=== PATIENT | female | born 1945 | race Hispanic/Latino ===

== ENCOUNTER 2016-07-13 15:17 | Emergency (ER) | payer MEDICARE, MEDICAID ==
[~2016-07-13] VITALS: Ht 160 cm; Wt 73.5 kg
[~2016-07-13 15:17] MED LIST: ALPR.5T PO; ASP81TEC PO; CALC-754 PO; CEPH500C PO; CHOL40002 PO; CYAN10007 INJ; DOXY100C2 PO; GBPN100C PO; GLIP10TA13 PO; HYDR-3583 PO; HYDR-3720 PO; INSU100V5 SQ; INSUSS SC; LIRA0.6P SQ; OMEP20CA12 PO; OMEP40CA36 PO; PHEN37.555 PO; PROG100C6 PO; SOLI5TAB4 PO; THYR120T2 PO; THYROID; ZINC30CA PO; ZINC50TA49 PO; [UNRECOGNIZED DRUG - OTHER]
--- OUTSIDE RECORDS SUMMARY | 2016-07-13 15:24 | XMS REPORT ---
Author Author JEANNE REEDER [facility] [place] eClinicalWorks Address Unknown Phone Unavailable Care Team Providers Care Animal Eviscerator Name Role Phone JEANNE REEDER CP Unavailable Allergies No Known Allergies Problems Problem Type Condition Code Onset Dates Condition Status Problem Hypothyroidism, unspecified type E03.9 Active Problem Bipolar affective disorder, remission status unspecified F31.9 Active Problem Type 2 diabetes mellitus without complication, unspecified buttermaker helper insulin use status E11.9 Active Problem History of CVA (cerebrovascular accident) Z86.73 Active Medications Medication Code System Code Instructions Start Date End Date Status Dosage Levemir [facility] [address]-97 100 UNIT/ML Subcutaneous Once a day 20 units Gabapentin [facility] [address]-83 100 MG Orally 2 times a day 2 capsules iron NDC 0 Oral 1 tab Phentermine HCl [facility] [address]-61 37.5 MG Orally Once a day 1 tablet Cyclobenzaprine HCl [facility] [address]-31 10 mg Orally every 8 hours, PRN 1 tablet GlipiZIDE [facility] [address]-39 10 mg Orally 3 times a day 1 tablet Victoza [facility] [address]-60 18 MG/3ML Subcutaneous Once a day 1.8 VESIcare [facility] [address]-03 5 mg Orally PRN 1 tablet Alprazolam [facility] [address]-01 0.5 MG Orally 2 times a day, prn anxiety 1 tablet [place] Thyroid [facility] [address]-66 120 MG Orally Once a day 1 tablet Vital Signs Date/Time: Apr 03, 2016 Blood Pressure Systolic 121 mmHg Weight 162.3 lbs Height 5.3 in BMI 4,061.83 Index Blood Pressure Diastolic 78 mmHg Results No Known Results Summary Purpose eClinicalWorks Submission
[2016-07-13 15:41] LABS: BILIRUBIN,URINE NEGATIVE (NEGATIVE); KETONES,URINE NEGATIVE (NEGATIVE); LEUKOCYTE ESTERASE ,URINE NEGATIVE (NEGATIVE); NITRITE,URINE NEGATIVE (NEGATIVE); PH,URINE 7 (5-9); PROTEIN,URINE NEGATIVE (NEGATIVE); UROBILINOGEN,URINE NORMAL (NORMAL)
[2016-07-13 16:03] LABS: BASOPHILS % (AUTO) 0 % (0-10); EOSINOPHILS # (AUTO) 0.1 10^3/uL (0.0-0.3); EOSINOPHILS % (AUTO) 0 % (0-10); LYMPHOCYTES # (AUTO) 3.8 X 10^3 (1.0-4.0); LYMPHOCYTES % (AUTO) 22 % (12-44); MEAN CORPUSCULAR HEMOGLOBIN 31 PG (25-34); MEAN CORPUSCULAR HGB CONC 35 G/DL (32-36); MEAN CORPUSCULAR VOLUME 90 FL (80-99); MEAN PLATELET VOLUME 10.3 FL (7.4-10.4); MONOCYTES # (AUTO) 0.8 X 10^3 (0.0-1.0); MONOCYTES % (AUTO) 5 % (0-12); NEUTROPHILS # (AUTO) 12.4 X 10^3 (1.8-7.8); NEUTROPHILS % (AUTO) 72 % (42-75); PLATELET COUNT 273 10^3/uL (130-400); RED BLOOD COUNT 5.09 10^6/uL (4.35-5.85); RED CELL DISTRIBUTION WIDTH 13.2 % (10.0-14.5); WHITE BLOOD COUNT 17.2 10^3/uL (4.3-11.0)
[2016-07-13 16:20] LABS: BAND NEUTROPHILS 0 %; BASOPHILS % (MANUAL) 0 %; EOSINOPHILS % (MANUAL) 0 %; LYMPHOCYTES % (MANUAL) 19 %; NEUTROPHILS % (MANUAL) 69 %; REACTIVE LYMPHOCYTES 10 %
[2016-07-13 16:22] LABS: ALANINE AMINOTRANSFERASE 27 U/L (0-55); ALBUMIN 4.3 G/DL (3.2-4.5); ANION GAP 12 MMOL/L (5-14); ASPARTATE AMINO TRANSFERASE 24 U/L (5-34); BLOOD UREA NITROGEN 17 MG/DL (7-18); BUN/CREATININE RATIO 18; CALCIUM 9.3 MG/DL (8.5-10.1); CARBON DIOXIDE 24 MMOL/L (21-32); CHLORIDE 101 MMOL/L (98-107); CREATININE SERUM 0.94 MG/DL (0.60-1.30); GFR ESTIMATED 59; GLUCOSE 139 MG/DL (70-105); POTASSIUM 4.3 MMOL/L (3.6-5.0); SODIUM 137 MMOL/L (135-145)
[2016-07-13 16:23] LABS: ACETAMINOPHEN < 10 UG/ML (10-30); ALCOHOL < 10 MG/DL (<10)
--- NOTE | 2016-07-13 16:42 | ED General ---
General Chief Complaint: General Problems/Pain Stated Complaint: R SIDE NUMBNESS, CONFUSION Nursing Triage Note: PT REPORTS THAT SHE "PASSED OUT" AT AROUND 1030 THIS AM. SHE STATES SHE HAS HAD A HEAD COLD, BUT TOOK AN AIRBORNE PILL THIS AM AND "CLEARED UP" SHE REPORTS THAT SHE WAS "SHAKING ON THIS INSIDE" PRIOR TO PASSING OUT. PT DOES NOT MAKE EYE CONTACT DURING TRIAGE AND IS VERY FIDGETY. Nursing Sepsis Screen: No Definite Risk Source of Information: Patient Exam Limitations: No Limitations History of Present Illness Time Seen by Provider: 16:36 Initial Comments The patient is a 71-year-old white female who appears with complaints of a syncopal episode this morning. She gives a rambling and sometimes circumferential account of the affairs. She states that she had had troubles with sinus congestion recently. She also had seen Dr. Gonzalez 2 weeks ago or so because she was experiencing more left-sided weakness. She stated that she suffered a stroke several years ago and was left with left-sided weakness although she has been ambulatory and able to conduct her activities of daily living. She uses some sort of natural product called airborne when she has congestion. Her neighbor brought her a prescription yesterday and she use that with good results. She felt good yesterday and got some things down about the house. She went to bed and fell sound asleep only to awaken at about 0200. Sleep disorders is not uncommon for her. She reported that she did not take her phentermine yesterday but she must take it to maintain her weight as if she gains weight her thyroid medicine does not work and she gets herself in a terrible mess. She is diabetic and this weight gain also affects that negatively. She also has a large bracelet on her distal forearm for the purposes of taking out a medic blood pressures at intervals. She states that she passed out in the kitchen. She is not at all clear why this happened. When she came to she noted a hematoma on the left side of the scalp in the occipital area Timing/Duration: Resolved Prior to Arrival Allergies and Home Medications Allergies Coded Allergies: Sulfa (Sulfonamide Antibiotics) (Unverified Allergy, Mild, 09/14/08) Uncoded Allergies: BENEDRYL (Allergy, Mild, 09/14/08) PCN (Allergy, Mild, 09/14/08) Home Medications Alprazolam 0.5 Mg Tablet 0.5 MG PO BID (Reported) Cholecalciferol (Vitamin D3) 4,000 Unit Capsule 4,000 UNIT PO DAILY (Reported) Gabapentin 100 Mg Cap 100 MG PO DAILY (Reported) Glipizide 10 Mg Tablet 10 MG PO TID (Reported) Insulin Detemir 100 U/Ml Vial 10 U SQ HS (Reported) Liraglutide 0.6 Mg/0.1 Ml Pen.injctr 1.8 MG SQ DAILY (Reported) Omeprazole 20 Mg Capsule.dr 20 MG PO DAILY (Reported) Phentermine Hcl 37.5 Mg Capsule 37.5 MG PO DAILY (Reported) Solifenacin Succinate 5 Mg Tablet 5 MG PO DAILY (Reported) PRN OVERACTIVE BLADDER Thyroid,Pork 120 Mg Tablet 120 MG PO DAILY (Reported) Zinc Amino Acid Chelate 50 Mg Tablet 50 MG PO DAILY (Reported) Constitutional: see HPI EENTM: nose congestion Respiratory: cough Cardiovascular: no symptoms reported syncope Gastrointestinal: no symptoms reported Genitourinary: no symptoms reported Musculoskeletal: other (mild left-sided weakness) Skin: no symptoms reported Psychiatric/Neurological: No Symptoms Reported Hematologic/Lymphatic: No Symptoms Reported Immunological/Allergic: no symptoms reported Past Hjsrnif-Lesdyy-Doozki Hx Patient Social History Alcohol Use: Past History Recreational Drug Use: No Smoking Status: Never a Smoker Recent Foreign Travel: No Contact w/Someone Who Travel: No Recent Infectious Disease Expo: No Recent Hopitalizations: No Physical Abuse Screen: No Sexual Abuse: No Surgeries HX Surgeries: Yes (KNEE SCOPE, LEFT RCR, LEFT PINKY FX) Surgeries: Appendectomy, Hysterectomy, Tonsillectomy Respiratory Hx Respiratory Disorders: No Cardiovascular Hx Cardiac Disorders: No Neurological Hx Neurological Disorders: Yes Neurological Disorders: TIA Genitourinary Hx Genitourinary Disorders: No Gastrointestinal Hx Gastrointestinal Disorders: No Musculoskeletal Hx Musculoskeletal Disorders: No Endocrine Hx Endocrine Disorders: Yes Endocrine Disorders: Diabetes, Insulin dep, Hypothyroidsim HEENT HX ENT Disorders: No Cancer Hx Cancer: Yes Cancer: Uterine Psychosocial Hx Psychiatric Problems: No Family Medical History Significant Family History: No Pertinent Family Hx Physical Exam Vital Signs Vital Sign - Last 12Hours 07/13/16 15:32 Temp 97.4 Pulse 99 Resp 20 B/P 145/85 Pulse Ox 97 O2 Delivery Room Air Capillary Refill : Less Than 3 Seconds General Appearance: No Apparent Distress WD/WN Eyes: Bilateral Eye Normal Inspection HEENT: Normal ENT Inspection Neck: Normal Inspection Respiratory: Chest Non Tender Lungs Clear Normal Breath Sounds No Accessory Muscle Use No Respiratory Distress Cardiovascular: Regular Rate, Rhythm No Edema No Gallop No JVD No Murmur Normal Peripheral Pulses Gastrointestinal: Normal Bowel Sounds No Organomegaly No Pulsatile Mass Non Tender Soft Extremity: Normal Capillary Refill Normal Inspection Normal Range of Motion Non Tender No Calf Tenderness No Pedal Edema Neurologic/Psychiatric: Alert Oriented x3 No Motor/Sensory Deficits Normal Mood/Affect Skin: Normal Color Warm/Dry Lymphatic: No Adenopathy Comments Legal Secretary was 2+ and equal bilaterally. Straight leg lift was equal bilaterally. There was a palpable hematoma in the left posterior scalp in the parieto- occipital area Progress/Results/Core Measures Results/Orders Lab Results Laboratory Tests Test 07/13/16 15:25 07/13/16 15:56 Range/Units Ur Tricyclic Antidepressants Screen NEGATIVE NEGATIVE Urine Amphetamines Screen POSITIVE H NEGATIVE Urine Bacteria NEGATIVE /HPF Urine Barbiturates Screen NEGATIVE NEGATIVE Urine Benzodiazepines Screen NEGATIVE NEGATIVE Urine Bilirubin NEGATIVE NEGATIVE Urine Cannabinoids Screen NEGATIVE NEGATIVE Urine Casts NONE /LPF Urine Clarity CLEAR Urine Cocaine Screen NEGATIVE NEGATIVE Urine Color YELLOW Urine Crystals NONE /LPF Urine Culture Indicated NO Urine Glucose (UA) NEGATIVE NEGATIVE Urine Ketones NEGATIVE NEGATIVE Urine Leukocyte Esterase NEGATIVE NEGATIVE Urine Methadone Screen NEGATIVE NEGATIVE Urine Methamphetamines Screen NEGATIVE NEGATIVE Urine Mucus NEGATIVE /LPF Urine Nitrite NEGATIVE NEGATIVE Urine Opiates Screen NEGATIVE NEGATIVE Urine Oxycodone Screen NEGATIVE NEGATIVE Urine Phencyclidine Screen NEGATIVE NEGATIVE Urine Propoxyphene Screen NEGATIVE NEGATIVE Urine Protein NEGATIVE NEGATIVE Urine RBC NONE /HPF Urine RBC (Auto) NEGATIVE NEGATIVE Urine Specific Lejunior 1.005 L 1.016-1.022 Urine Squamous Epithelial Cells 5-10 /HPF Urine Urobilinogen NORMAL NORMAL MG/DL Urine WBC NONE /HPF Urine pH 7 5-9 Acetaminophen Level < 10 L 10-30 UG/ML Alanine Aminotransferase (ALT/SGPT) 27 0-55 U/L Albumin 4.3 3.2-4.5 G/DL Alkaline Phosphatase 79 40-136 U/L Anion Gap 12 5-14 MMOL/L Aspartate Amino Transf (AST/SGOT) 24 5-34 U/L BUN/Creatinine Ratio 18 Band Neutrophils 0 % Basophils # (Auto) 0.0 0.0-0.1 10^3/uL Basophils % (Manual) 0 % Basophils (%) (Auto) 0 0-10 % Blood Morphology Comment NORMAL Blood Urea Nitrogen 17 7-18 MG/DL Calcium Level 9.3 8.5-10.1 MG/DL Carbon Dioxide Level 24 21-32 MMOL/L Chloride Level 101 98-107 MMOL/L Creatinine 0.94 0.60-1.30 MG/DL Eosinophils # (Auto) 0.1 0.0-0.3 10^3/uL Eosinophils % (Manual) 0 % Eosinophils (%) (Auto) 0 0-10 % Estimat Glomerular Filtration Rate 59 Glucose Level 139 H 70-105 MG/DL Hematocrit 46 35-52 % Hemoglobin 15.8 11.5-16.0 G/DL Lymphocytes # (Auto) 3.8 1.0-4.0 X 10^3 Lymphocytes % (Manual) 19 % Lymphocytes (%) (Auto) 22 12-44 % Mean Corpuscular Hemoglobin 31 25-34 PG Mean Corpuscular Hemoglobin Concent 35 32-36 G/DL Mean Corpuscular Volume 90 80-99 FL Mean Platelet Volume 10.3 7.4-10.4 FL Monocytes # (Auto) 0.8 0.0-1.0 X 10^3 Monocytes % (Manual) 2 % Monocytes (%) (Auto) 5 0-12 % Neutrophils # (Auto) 12.4 H 1.8-7.8 X 10^3 Neutrophils % (Manual) 69 % Neutrophils (%) (Auto) 72 42-75 % Platelet Count 273 130-400 10^3/uL Potassium Level 4.3 3.6-5.0 MMOL/L Reactive Lymphocytes 10 % Red Blood Count 5.09 4.35-5.85 10^6/uL Red Cell Distribution Width 13.2 10.0-14.5 % Serum Alcohol < 10 <10 MG/DL Sodium Level 137 135-145 MMOL/L Total Bilirubin 1.0 0.1-1.0 MG/DL Total Protein 7.0 6.4-8.2 G/DL White Blood Count 17.2 H 4.3-11.0 10^3/uL My Orders Orders-MARIA R GARZA MD Acetaminophen (07/13/16 15:35) Alcohol (07/13/16 15:35) Cbc With Automated Diff (07/13/16 15:35) Comprehensive Metabolic Panel (07/13/16 15:35) Drug Screen Stat (Urine) (07/13/16 15:35) Ua Culture If Indicated (07/13/16 15:35) Manual Differential (07/13/16 15:56) Ct Head Wo (07/13/16 16:46) Vital Signs/I&O Vital Sign - Last 12Hours 07/13/16 15:32 Temp 97.4 Pulse 99 Resp 20 B/P 145/85 Pulse Ox 97 O2 Delivery Room Air Blood Pressure Mean: 105 Departure Communication Progress Notes CT scan shows no evidence of subdural hematoma or other pathology. Impression Impression: Primary Impression: Episode of syncope Additional Impressions: Viral upper respiratory illness upper respiratory illness Disposition: HOME, SELF-CARE Condition: Stable/Unchanged Departure-Patient Inst. Decision time for Depature: 17:57 Referrals: SHASHANK GONZALEZ MD (PCP) Primary Care Physician Add. Discharge Instructions: All discharge instructions reviewed with patient and/or family. Voiced understanding. Plenty of rest and liquids. See your provider if further problems MARIA R GARZA MD Jul 13, 2016 16:41
--- NOTE | 2016-07-13 17:33 | Diagnostic Imaging Report ---
PROCEDURE: CT head without contrast. TECHNIQUE: Multiple contiguous axial images were obtained through the brain without the use of intravenous contrast. INDICATION: Syncope, hit head. COMPARISON: November 02, 2012. FINDINGS: No intracranial hemorrhage. No intracranial mass, mass effect, midline shift, herniation, hydrocephalus or extra-axial fluid collection. No definite CT evidence of an acute ischemic infarction. The bilateral occular lenses are absent. The paranasal sinuses are clear. The calvarium and extracalvarial soft tissues are unremarkable. IMPRESSION: Stable examination without acute intracranial abnormality. Dictated by: Dictated on workstation # [id number]
[2016-07-13 18:20] VITALS: BP 133/83
== END 2016-07-13 18:20 | disposition home or self-care (01) ==
LOC: EDUNIT# 15:17 → ER 15:19
DX: R55 Syncope and collapse (principal); J06.9 Acute upper respiratory infection, unspecified; S00.03XA Contusion of scalp, initial encounter; E11.9 Type 2 diabetes mellitus without complications; E03.9 Hypothyroidism, unspecified; I69.954 Hemiplegia and hemiparesis following unspecified cerebrovascular disease affecting left non-dominant side; Z79.84 Long term (current) use of oral hypoglycemic drugs; Z79.4 Long term (current) use of insulin; Z79.899 Other long term (current) drug therapy
CPT/HCPCS: 36415; 70450; 80053; 80306; 80320; 80329; 81000; 85007; 85027

== ENCOUNTER → 2016-07-28 | Outpatient (CLI) | payer MEDICARE, MEDICAID ==
--- NOTE | 2016-07-28 13:25 | Diagnostic Imaging Report ---
PROCEDURE: US Carotid Duplex Bilateral. TECHNIQUE: Multiple real-time grayscale images were obtained over the carotid arteries in various projections bilaterally. Additional duplex Doppler and color Doppler images were also obtained. INDICATION: E89.41 FINDINGS: No significant plaque is seen on grayscale images. Color Doppler demonstrates patency of the common, internal, and external carotid arteries bilaterally. Antegrade flow in the vertebral arteries is seen on both sides. The peak systolic velocity in the right ICA is 87 with 66 cm/s in the proximal and mid right ICA. The distal right ICA is not well seen due to tortuosity. The left ICA velocities are 53, 75, and 83 cm/s from proximal to distal. The ICA/CCA ratios are up to 1.1 on the right side and 1.2 on the left. IMPRESSION: The right ICA distal segment is not well evaluated. The estimated underlying stenosis of the proximal ICA is within the range of 0-40% bilaterally. Dictated by: Dictated on workstation # [id number]
== END ==
LOC: RAD 11:54
DX: R55 Syncope and collapse (principal); I65.23 Occlusion and stenosis of bilateral carotid arteries; I10 Essential (primary) hypertension; E89.41 Symptomatic postprocedural ovarian failure; E03.9 Hypothyroidism, unspecified; I63.9 Cerebral infarction, unspecified; N39.3 Stress incontinence (female) (male); H40.9 Unspecified glaucoma; E10.9 Type 1 diabetes mellitus without complications; F32.9 Major depressive disorder, single episode, unspecified; F41.1 Generalized anxiety disorder
CPT/HCPCS: 93880

== ENCOUNTER → 2016-07-31 | Outpatient (CLI) | payer MEDICARE, MEDICAID ==
--- NOTE | 2016-08-04 10:39 | ECHOCARDIOGRAPHY REPORT ---
PROCEDURE PHYSICIAN: RENE LO DATE OF PROCEDURE: 07/31/2016 TWO DIMENSIONAL ECHOCARDIOGRAM REPORT PRIMARY PHYSICIAN: OTHER PHYSICIAN: REFERRING PHYSICIAN: Dr. Rashawn Mcfarland ORDERING PHYSICIAN: INDICATION FOR THE PROCEDURE: 1. Coronary artery disease. 2. Chest pain. MEASUREMENTS DERIVED VALUES LV DIAMETER (LAX) NORMALS NORMALS Diastolic 4 (3.6-5.2) Eject. Fract. 60% (60%+/-6%) Systolic (2.3-3.9) Diastolic Vol. % Shortening (0.22-0.42) Systolic Vol. Aortic Root IVS THICKNESS Diastolic 1.1 (0.6-1.1) LVPW THICKNESS Diastolic 1 (0.6-1.1) LA DIAMETER Systolic 3.1 (2.1-3.7) FINDINGS: 1. Technical quality is good. 2. The left ventricle is normal in size with normal contractility. Systolic function appeared to be normal. Estimated ejection fraction 60%. 3. The left atrium is normal in size. No clot or thrombus were seen within the left atrium. 4. The right atrium and right ventricle are normal in size. No clot or thrombus were seen within the right side. 5. Mitral valve is normal in morphology with mild mitral regurgitation noted by color Doppler flow. No mitral valve prolapse. No mitral valve stenosis. 6. Aortic valve is trileaflet with normal opening and closing pattern. No significant aortic valve stenosis was noted. Color Doppler flow across the aortic valve showed mild aortic regurgitation. 7. Tricuspid valve is normal in morphology with mild tricuspid regurgitation noted by color Doppler flow. Doppler across tricuspid valve estimated pulmonary artery pressure of 24+ right atrial pressure. 8. Pulmonic valve is functioning normally. 9. No pericardial effusion. IN CONCLUSION: 1. Normal left ventricular size and systolic function. Estimated ejection fraction 60%. 2. Mild aortic regurgitation. Mild mitral and tricuspid regurgitation. 3. Estimated pulmonary artery pressure of 30 mmHg. Job ID: [id number] Dictated Date: 08/04/2016 07:54:40 Die Engraver Date: 08/04/2016 10:37:00 / tbruchi
== END ==
LOC: CARD 08:46
PROVIDERS: ATTEND Internal Medicine Cardiovascular Disease
DX: R07.9 Chest pain, unspecified (principal); G45.9 Transient cerebral ischemic attack, unspecified; E03.9 Hypothyroidism, unspecified
CPT/HCPCS: 93225; 93226; 93306

== ENCOUNTER 2017-11-19 15:50 | Outpatient (CLI) | payer MEDICARE, MEDICAID ==
[~2017-11-19] VITALS: Ht 160 cm; Wt 68.9 kg
[2017-11-19] MEDS ORDERED: GLIP10TA13 PO (15:56)
[2017-11-19] MEDS ORDERED: INSU100I29 SQ (15:56)
[2017-11-19] MEDS ORDERED: PHEN37.53 PO (15:56)
[2017-11-19] MEDS ORDERED: GABA-488 PO (15:56)
[2017-11-19] MEDS ORDERED: CALC215T2 PO (15:56)
[2017-11-19] MEDS ORDERED: NF-SOLIF5T PO (15:56)
[2017-11-19] MEDS ORDERED: THYR120T2 PO (15:56)
[2017-11-19] MEDS ORDERED: ASPI-586 PO (15:56)
[2017-11-19] MEDS ORDERED: METF500T5 PO (15:56)
[2017-11-19] MEDS ORDERED: LIRA0.6P3 SQ (15:56)
[2017-11-19] MEDS ORDERED: OMG1KC PO (15:56)
== END 2017-11-19 15:56 ==
LOC: PREOP 15:50
PROVIDERS: ATTEND Surgery
DX: Z01.818 Encounter for other preprocedural examination (principal); R13.10 Dysphagia, unspecified

== ENCOUNTER 2017-11-23 11:51 | Day surgery (SDC) | payer MEDICARE, MEDICAID ==
[~2017-11-23] VITALS: Ht 160 cm; Wt 68.9 kg
[~2017-11-23 11:51] MED LIST changes: +ASPI-586 PO; +CALC215T2 PO; +GABA-488 PO; +INSU100I29 SQ; +LIRA0.6P3 SQ; +METF500T5 PO; +NF-SOLIF5T PO; +OMG1KC PO; +PHEN37.53 PO
[2017-11-23] MEDS ORDERED: NS IV 500 ML 500 ML IV PRN (12:06)
[2017-11-23 12:10] VITALS: BP 126/81
[2017-11-23] MEDS ORDERED: NS IV 500 ML 500 ML ONE (12:11)
[2017-11-23] MEDS ORDERED: MIDAZOLAM 2 MG/2 ML (VERSED) VIAL IVP PRN (12:15)
[2017-11-23] MEDS ORDERED: fentaNYL INJECTION 100 MCG/2 ML AMP IVP PRN (12:15)
[2017-11-23] MEDS ORDERED: HURRICAINE EXT TUBE (BENZOCAINE) XX PRN (12:15)
--- NOTE | 2017-11-23 12:36 | History & Physicial ---
History of Present Illness History of Present Illness Reason for visit/HPI To undergo an EGD with possible balloon dilatation, regarding dysphagia Date of Admission 11/23/17 Date Seen by Provider: Nov 23, 2017 Time Seen by Provider: 12:34 I consulted on this patient on 11/23/17 12:33 Attending Physician Caridad Diaz MD Admitting Physician Rashawn Mcfarland MD Consult Allergies and Home Medications Allergies Coded Allergies: Sulfa (Sulfonamide Antibiotics) (Unverified Allergy, Mild, 09/14/08) Uncoded Allergies: BENEDRYL (Allergy, Mild, 09/14/08) PCN (Allergy, Mild, 09/14/08) Home Medications Aspirin 81 Mg Tablet.dr, 81 MG PO DAILY, (Reported) Calcium Carbonate 215 Mg Tab.chew, 215 MG PO TIDPC, (Reported) Gabapentin 300 Mg Capsule, 300 MG PO BID, (Reported) Glipizide 10 Mg Tablet, 10 MG PO TID, (Reported) Insulin Detemir 100 Unit/1 Ml Insuln.pen, 25 UNIT SQ HS, (Reported) Liraglutide 0.6 Mg/0.1 Ml Pen.injctr, 1.2 MG SQ DAILY, (Reported) Metformin HCl 500 Mg Tablet, 500 MG PO DAILY, (Reported) [place] 3 Polyunsat Fatty Acids 1,000 Mg Cap, 1,000 MG PO TID, (Reported) Phentermine HCl 37.5 Mg Tablet, 56.25 MG PO DAILY, (Reported) take 1 1/2 of 37.5 mg tab Solifenacin Succinate 5 Mg Tablet, 5 MG PO DAILY, (Reported) Thyroid,Pork 120 Mg Tablet, 120 MG PO DAILY, (Reported) Patient Home Medication List Home Medication List Reviewed: Yes Past Azqltgn-Naemsi-Ziwhzb Hx Patient Social History Employed/Student: retired Alcohol Use: Denies Use Recreational Drug Use: No (HX OF DRUG USE) Smoking Status: Never a Smoker Recent Foreign Travel: No Contact w/other who traveled: No Recent Hopitalizations: No Recent Infectious Disease Expo: No Seasonal Allergies Seasonal Allergies: No Surgeries Yes Appendectomy, Hysterectomy, Tonsillectomy Respiratory No Neurological No TIA Gastrointestinal Yes Hemorrhoids Musculoskeletal No Endocrine History of Endocrine Disorders: Yes Endocrine Disorders: Diabetes, Insulin dep, Hypothyroidsim Cancer Yes Uterine Did You Recieve Any Treatments: Yes Type of Treatment: Surgical Intervention Psychosocial History of Psychiatric Problem: No Family Medical History Significant Family History: No Pertinent Family Hx Constitutional: no symptoms reported EENTM: no symptoms reported Respiratory: no symptoms reported Cardiovascular: no symptoms reported Gastrointestinal: see HPI Genitourinary: no symptoms reported Skin: no symptoms reported Psychiatric/Neurological: No Symptoms Reported Physical Exam Vital Signs Vital Signs - First Documented 11/23/17 12:10 Temp 98.0 Pulse 81 Resp 16 B/P (MAP) 126/81 (96) Pulse Ox 98 O2 Delivery Room Air Capillary Refill : General Appearance: No Apparent Distress Neck: Normal Inspection Respiratory: Lungs Clear Cardiovascular: Regular Rate, Rhythm Gastrointestinal: Non Tender, Soft Neurologic/Psychiatric: Alert, Oriented x3 Skin: Warm/Dry Assessment/Plan Assessment and Plan Lady with dysphagia. For an upper endoscopy with possible balloon dilatation Admission Diagnosis Admission Status: Other (Outpt Proc) CARIDAD DIAZ MD Nov 23, 2017 12:36 pm
--- NOTE | 2017-11-23 12:36 | Conscious Sedation/ASA ---
Conscious Sedation Pre-Proced Time Reviewed: 12:36 ASA Class: 2 Airway Mallampati Classification: (elim ira appropriate class) I. II. III, IV Lungs Heart ASA score ASA 1: a normal healthy patient ASA 2: a patient with a mild systemic disease (mid diabetes, controlled hypertension, obesity ASA 3: a patient with a severe systemic disease that limits activity (angina , COPD, prior Myocardial infarction) ASA 4: a patient with an incapacitating disease that is a constant threat to life (CHF, renal failure) ASA 5: a moribund patient not expected to survive 24 hrs. (ruptured aneurysm) ASA 6: a declared brain patient whose organs are being harvested. For emergent operations, add the letter E after the classification Grade 1 Sedation Plan: Discussed options with patient/fam Note The patient is an appropriate candidate to undergo the planned procedure, sedation, and anesthesia. The patient immediately re-assessed prior to indication. CARIDAD DIAZ MD Nov 23, 2017 12:36 pm
[2017-11-23] MEDS ORDERED: MIDAZOLAM 2 MG/2 ML (VERSED) VIAL ONE ×2 (13:45)
[2017-11-23] MEDS ORDERED: fentaNYL INJECTION 100 MCG/2 ML AMP ONE (13:46)
[2017-11-23] MEDS ORDERED: HURRICAINE EXT TUBE (BENZOCAINE) ONE (13:46)
--- NOTE | 2017-11-23 14:18 | Endo Procedure Record ---
Endo Procedure Report Date of Procedure Last Colonoscopy: Yes Nov 23, 2017 Surgeon (s) CARIDAD DIAZ MD Post Procedure/Op Diagnosis Tortuous esophagus Hiatal hernia with esophageal stricture Procedure Performed EGD Redfield cytology of distal esophagus Balloon dilatation of esophageal stricture Description of Procedure Anesthesia Type: Conscious Sedation Specimen(s) collected/removed Redfield cytology from the distal esophagus Description of the Procedure Indication for the procedure: This lady came in for an upper endoscopy with an intent to perform balloon dilatation, regarding ongoing dysphagia. Informed consent was obtained after reviewing the procedure in detail. Description of the procedure: She was placed in left lateral decubitus position and her vital signs were monitored. Conscious sedation was achieved using Versed and fentanyl. The flexible gastroscope was introduced down the esophagus , past the stomach, into the proximal duodenum. Findings: Esophagus: Quite tortuous with a hiatal hernia and an associated peptic stricture. Redfield cytology was obtained to rule out any dysplasia and the stricture was dilated to 19 mm using a balloon Stomach and duodenum were normal. She tolerated the procedure well and was taken back to the nursing area in stable condition. Impression: Dysphagia due to distal esophageal stricture. Tortuous esophagus. Balloon dilatation completed. Note: If her symptoms continue, she would undergo esophageal manometry CARIDAD DIAZ MD Nov 23, 2017 2:18 pm
--- NOTE | 2017-11-23 14:20 | Discharge Inst-Simple/Standard ---
Discharge Inst-Standard Discharge Medications New, Converted or Re-Newed RX: Other Patient Instructions/Follow Up Plan of Care/Instructions/FU: Follow-up with me in a month Activity as Tolerated: Yes Discharge Diet: ADA Diet CARIDAD DIAZ MD Nov 23, 2017 2:20 pm
[2017-11-23 14:35] VITALS: BP 129/72
[2017-11-23 15:05] VITALS: BP 130/76
[2017-11-23 15:15] VITALS: BP 130/76
== END 2017-11-23 15:15 | disposition home or self-care (01) ==
LOC: ENDO 11:51
PROVIDERS: ATTEND Surgery
DX: K22.2 Esophageal obstruction (principal); K44.9 Diaphragmatic hernia without obstruction or gangrene; E11.9 Type 2 diabetes mellitus without complications; E03.9 Hypothyroidism, unspecified; Z79.4 Long term (current) use of insulin; Z86.73 Personal history of transient ischemic attack (TIA), and cerebral infarction without residual deficits
CPT/HCPCS: 82962

== ENCOUNTER → 2017-12-17 | Outpatient (CLI) | payer MEDICARE, MEDICAID ==
--- NOTE | 2017-12-17 13:12 | Diagnostic Imaging Report ---
DEXA scan. Indication: Screening for osteoporosis. There are no prior studies available for comparison. The bone mineral density of the hips and spine was measured. The T score for the spine is 1.3. The T score for the left hip is 3.2 and for the right hip 2.2. All these values are well within normal limits. Impression: The bone mineral density of the hips and spine is within normal limits. Dictated by: Dictated on workstation # [id number]
== END ==
LOC: RAD 10:40
PROVIDERS: ATTEND Internal Medicine Endocrinology, Diabetes & Metabolism
DX: Z13.820 Encounter for screening for osteoporosis (principal); Z78.0 Asymptomatic menopausal state
CPT/HCPCS: 77080

== ENCOUNTER → 2018-10-07 | Outpatient (CLI) | payer MEDICARE, MEDICAID ==
[~2018-10-07] MED LIST changes: +METF-397 PO; -METF500T5 PO
--- NOTE | 2018-10-07 12:16 | Diagnostic Imaging Report ---
CLINICAL INDICATION: Patient with dysphagia and fatigue. COMPARISONS: None. FINDINGS: THYROID NODULES: None. THYROID GLAND: The thyroid gland has normal size, shape and echogenicity. The right lobe measures 3.9 cm x 1.2 cm x 1.3 cm and the left lobe measures 4.5 cm x 1.4 cm x 0.9 cm in their three dimensions. ISTHMUS: The isthmus measures 6 mm in thickness. IMPRESSION: Unremarkable thyroid ultrasound exam. Dictated by: Dictated on workstation # [id number]
== END ==
LOC: RAD 11:14
PROVIDERS: ATTEND Surgery
DX: R13.10 Dysphagia, unspecified (principal); R53.83 Other fatigue
CPT/HCPCS: 76536

== ENCOUNTER → 2018-12-15 | Outpatient (CLI) | payer MEDICARE, MEDICAID ==
--- NOTE | 2018-12-15 13:51 | Diagnostic Imaging Report ---
INDICATION: Blurred vision, headache, and dizziness. EXAMINATION: Noncontrast brain CT is performed and compared to 07/13/2016. FINDINGS: There are mild diffuse atrophic changes. There are mild low-density changes in the deep white matter compatible with chronic ischemic change. There is no acute hemorrhage, mass effect, or midline shift. The ventricles are normal in size and position. Calvarial windows appear unremarkable. IMPRESSION: No acute hemorrhage or mass effect. Mild atrophic changes with mild chronic changes in deep white matter, appearing similar to the prior study. There is no acute-appearing abnormality. Dictated by: Dictated on workstation # [id number]
== END ==
LOC: RAD 13:14
PROVIDERS: ATTEND Nurse Practitioner
DX: F03.90 Unspecified dementia, unspecified severity, without behavioral disturbance, psychotic disturbance, mood disturbance, and anxiety (principal); G31.9 Degenerative disease of nervous system, unspecified; R90.82 White matter disease, unspecified; H53.8 Other visual disturbances
CPT/HCPCS: 70450

== ENCOUNTER → 2019-03-10 | Outpatient (CLI) | payer MEDICARE, MEDICAID | LOC: CARD 12:38 | PROVIDERS: ATTEND Physician Assistant | DX: I65.29 Occlusion and stenosis of unspecified carotid artery (principal); F41.9 Anxiety disorder, unspecified; I10 Essential (primary) hypertension; E78.5 Hyperlipidemia, unspecified; I34.0 Nonrheumatic mitral (valve) insufficiency; R00.2 Palpitations | CPT/HCPCS: 93306 ==

== ENCOUNTER → 2019-11-08 | Outpatient (CLI) | payer MEDICARE, MEDICAID ==
--- NOTE | 2019-11-08 14:48 | Diagnostic Imaging Report ---
INDICATION: Routine screening. COMPARISON: 04/02/2017 and 03/12/2016. TECHNIQUE: 2D and 3D bilateral screening mammography was performed with CAD. FINDINGS: Scattered fibroglandular densities are identified bilaterally. An intraparenchymal lymph node in the far posterior and outer right breast is noted. There are scattered benign calcifications in both breasts. No mass or malignant appearing microcalcifications are seen. The axillae are unremarkable. IMPRESSION: No mammographic features suspicious for malignancy are identified. ACR BI-RADS Category 2: Benign findings. Result letter will be mailed to the patient. Note: At least 10% of breast cancer is not imaged by mammography. Dictated by: Dictated on workstation # [id number]
== END ==
LOC: RAD 11:52
PROVIDERS: ATTEND Nurse Practitioner Family
DX: Z12.31 Encounter for screening mammogram for malignant neoplasm of breast (principal)
CPT/HCPCS: 77063; 77067

== ENCOUNTER → 2019-11-16 | Outpatient (CLI) | payer MEDICARE, MEDICAID ==
[2019-11-16 11:38] LABS: ALANINE AMINOTRANSFERASE 32 U/L (0-55); ALBUMIN 4.5 GM/DL (3.2-4.5); ALKALINE PHOSPHATASE 86 U/L (40-136); BILIRUBIN,TOTAL 0.7 MG/DL (0.1-1.0); BUN/CREATININE RATIO 23; CALCIUM 9.5 MG/DL (8.5-10.1); CARBON DIOXIDE 23 MMOL/L (21-32); CHLORIDE 107 MMOL/L (98-107); CHOLESTEROL 149 MG/DL (< 200); CREATININE SERUM 0.84 MG/DL (0.60-1.30); GFR ESTIMATED > 60; GLUCOSE 211 MG/DL (70-105); HDL CHOLESTEROL 45 MG/DL (40-60); POTASSIUM 4.3 MMOL/L (3.6-5.0); SODIUM 139 MMOL/L (135-145); TOTAL PROTEIN 7.9 GM/DL (6.4-8.2); TRIGLYCERIDES 222 MG/DL (<150); VLDL CHOLESTEROL 44 MG/DL (5-40)
== END ==
LOC: LAB 10:50
PROVIDERS: ATTEND Nurse Practitioner Family
DX: E03.8 Other specified hypothyroidism (principal); E11.9 Type 2 diabetes mellitus without complications
CPT/HCPCS: 36415; 80053; 80061; 82043; 84443

== ENCOUNTER → 2019-11-16 | Outpatient (CLI) | payer MEDICARE, MEDICAID ==
[2019-11-16 11:58] LABS: ALKALINE PHOSPHATASE 86 U/L (40-136); BILIRUBIN,TOTAL 0.7 MG/DL (0.1-1.0); BUN/CREATININE RATIO 23; CALCIUM 9.5 MG/DL (8.5-10.1); CARBON DIOXIDE 23 MMOL/L (21-32); CHLORIDE 107 MMOL/L (98-107); CREATININE SERUM 0.84 MG/DL (0.60-1.30); GFR ESTIMATED > 60; GLUCOSE 211 MG/DL (70-105); POTASSIUM 4.3 MMOL/L (3.6-5.0); SODIUM 139 MMOL/L (135-145)
[2019-11-16 11:59] LABS: ALANINE AMINOTRANSFERASE 32 U/L (0-55); ALBUMIN 4.5 GM/DL (3.2-4.5); CHOLESTEROL 149 MG/DL (< 200); HDL CHOLESTEROL 45 MG/DL (40-60); TOTAL PROTEIN 7.9 GM/DL (6.4-8.2); TRIGLYCERIDES 222 MG/DL (<150); VLDL CHOLESTEROL 44 MG/DL (5-40)
== END ==
LOC: LAB 10:53
PROVIDERS: ATTEND Internal Medicine Cardiovascular Disease
DX: E78.5 Hyperlipidemia, unspecified (principal); I10 Essential (primary) hypertension
CPT/HCPCS: 80053; 80061

== ENCOUNTER → 2020-05-21 | Outpatient (CLI) | payer MEDICARE, MEDICAID ==
[2020-05-21 10:22] LABS: ALANINE AMINOTRANSFERASE 29 U/L (0-55); ALBUMIN 4.3 GM/DL (3.2-4.5); ALKALINE PHOSPHATASE 86 U/L (40-136); BILIRUBIN,TOTAL 0.8 MG/DL (0.1-1.0); BUN/CREATININE RATIO 22; CALCIUM 8.9 MG/DL (8.5-10.1); CARBON DIOXIDE 21 MMOL/L (21-32); CHLORIDE 108 MMOL/L (98-107); CHOLESTEROL 160 MG/DL (< 200); CREATININE SERUM 0.85 MG/DL (0.60-1.30); GFR ESTIMATED > 60; GLUCOSE 184 MG/DL (70-105); HDL CHOLESTEROL 43 MG/DL (40-60); POTASSIUM 4.3 MMOL/L (3.6-5.0); SODIUM 140 MMOL/L (135-145); TOTAL PROTEIN 7.4 GM/DL (6.4-8.2); TRIGLYCERIDES 178 MG/DL (<150); VLDL CHOLESTEROL 36 MG/DL (5-40)
== END ==
LOC: LAB 09:35
PROVIDERS: ATTEND Physician Assistant
DX: E78.5 Hyperlipidemia, unspecified (principal); I10 Essential (primary) hypertension
CPT/HCPCS: 36415; 80053; 80061

== ENCOUNTER → 2021-03-08 | Outpatient (CLI) | payer MEDICARE, MEDICAID ==
[~2021-03-08] MED LIST changes: -CALC215T2 PO; +CALC215T8 PO; -PHEN37.53 PO; +PHEN37.58 PO; +REGADENOSON 0.4 MG/5 ML SYR (LEXISCAN) IV ONE
== END ==
LOC: CARD 07:32
PROVIDERS: ATTEND Physician Assistant
DX: I35.1 Nonrheumatic aortic (valve) insufficiency (principal); I10 Essential (primary) hypertension
CPT/HCPCS: 93306

== ENCOUNTER → 2021-03-11 | Outpatient (CLI) | payer MEDICARE, MEDICAID ==
[~2021-03-11] VITALS: Ht 154 cm; Wt 69.0 kg
[~2021-03-11] MED LIST changes: +CATHETER FLUSH 10 ML SYR IV PRN
[2021-03-11 09:28] VITALS: BP 144/78
--- NOTE | 2021-03-11 11:22 | Cardiology Stress Test Report ---
Stress Test Report Date of Procedure/Referring: Date of Procedure: Mar 11, 2021 Rea Kapadia Admitting [facility] Indications: HTN Baseline Heart Rate: 73 Baseline Blood Pressure: Blood Pressure Systolic: 144 Blood Pressure Diastolic: 78 Baseline Vitals Vital Signs Date Time Temp Pulse Resp B/P (MAP) Pulse Ox O2 Delivery O2 Flow Rate FiO2 03/11/21 09:28 73 144/78 (100) 95 Baseline EKG: Baseline EKG: NSR Summary After explaining the procedure to the patient, she signed a consent and then brought to the stress nuclear laboratory. Patient received 0.4 mg Lexiscan for stress test, ECG, heart rate and blood pressure were monitored continuously. Resting and stress dose of radio tracer were injected, imaging was acquired and reviewed in short axis, horizontal long axis and vertical long axis views. TID: 1.07 SSS: 5 SDS: 1 EF: 67 1. Patient tolerated Lexiscan well 2. Mild decreased uptake at the basal to mid inferior septum which is fixed, no significant ischemia or infarction was noted on SPECT images 3. Normal left ventricular size, EF 67% RENE LO MD Mar 11, 2021 11:22
== END ==
LOC: CARD 08:00
PROVIDERS: ATTEND Physician Assistant
DX: I10 Essential (primary) hypertension (principal); R07.9 Chest pain, unspecified
CPT/HCPCS: 78452; 93017; A9502

== ENCOUNTER → 2021-05-23 | Outpatient (CLI) | payer MEDICARE, MEDICAID ==
[~2021-05-23] MED LIST changes: -CATHETER FLUSH 10 ML SYR IV PRN; -REGADENOSON 0.4 MG/5 ML SYR (LEXISCAN) IV ONE; +RT-ALBUTEROL SULF 2.5 MG/3 ML PRE-MIX VIAL INH ONE
== END ==
LOC: RT 13:00
PROVIDERS: ATTEND Internal Medicine Cardiovascular Disease
DX: R06.00 Dyspnea, unspecified (principal)
CPT/HCPCS: 94060; 94726; 94729

== ENCOUNTER 2021-05-30 10:22 | Emergency (ER) | payer MEDICARE, MEDICAID ==
[~2021-05-30] VITALS: Ht 157 cm; Wt 68.0 kg
[~2021-05-30 10:22] MED LIST changes: -RT-ALBUTEROL SULF 2.5 MG/3 ML PRE-MIX VIAL INH ONE
--- NOTE | 2021-05-30 11:16 | Diagnostic Imaging Report ---
PROCEDURE: CT head, face, and cervical spine without contrast. TECHNIQUE: Multiple contiguous axial images were obtained through the head, neck, and facial bones without the use of intravenous contrast. Sagittal and coronal reformations through the cervical spine and facial bones were also performed. Auto Exposure Controls were utilized during the CT exam to meet ALARA standards for radiation dose reduction. INDICATION: Fall with head, face and neck injury. Correlation is made with head CT from 12/15/2018. CT HEAD: Ventricles and sulci remain prominent consistent with cerebral atrophy. There is no sulcal effacement or midline shift. No acute intra-axial or extra-axial hemorrhage is detected. Cisterns are patent. Visualized paranasal sinuses are clear. IMPRESSION: Stable chronic changes. No acute intracranial process is detected. CT cervical spine: There is straightening of the normal cervical lordotic curvature. There is minimal anterolisthesis of C4 on C5. There is multilevel degenerative disc disease, greatest at C5-C6, C6/C7 and C7-T1 levels were there is moderate disc space narrowing and marginal spurring. Multilevel facet arthropathy is also noted. No fractures are identified. Prevertebral tissues are within normal limits. Odontoid is intact. IMPRESSION: Cervical spondylosis. No acute bony abnormality is detected. CT face: Mandible is intact. Zygotic arches are intact. Maxillary sinus tomlin, nasal bones and orbital tomlin are intact. No fracture is seen. The frontal sinuses show some minimal mucosal thickening. Sinuses are otherwise clear. Mastoids are well aerated. IMPRESSION: No facial bone fracture is detected. Dictated by: Dictated on workstation # [id number]
--- NOTE | 2021-05-30 11:21 | Diagnostic Imaging Report ---
EXAMINATION: CT chest, abdomen and pelvis without intravenous contrast. TECHNIQUE: Multiple contiguous axial images were obtained through the chest, abdomen and pelvis without intravenous contrast. All CT scans use one or more of the following dose optimizing techniques: automated exposure control, MA and/or KvP adjustment based on patient size and exam type or iterative reconstruction. HISTORY: Fall, Rib pain, abdominal pain, back pain COMPARISON: None available. FINDINGS: Thyroid: The thyroid is normal. Mediastinum: Heart size is normal without significant pericardial effusion. Calcifications of the aorta and coronary vessels. Thoracic aorta is normal in caliber. No suspicious lymphadenopathy. Lungs and airways: The lungs are clear without consolidation, pleural effusion, or pneumothorax. There is atelectasis within the dependent lungs. The airways are normal. Solid organs: The liver is normal. The gallbladder is normal. There is no biliary ductal dilation. Pancreas is normal. Spleen is normal. Adrenal glands are normal. The kidneys are normal without hydronephrosis. Bowel: The stomach and small bowel are normal without obstruction. The colon is unremarkable. No findings of acute appendicitis. Peritoneum: There is no intraperitoneal free fluid or free air. No suspicious lymphadenopathy. Vasculature: Calcification of the aorta without aneurysm. Musculoskeletal: Degenerative changes of the spine without suspicious osseous lesion or compression fracture. There is bilateral L5 pars defects. No acute fracture. Pelvis: The uterus is surgically absent. No adnexal mass. The urinary bladder is normal. IMPRESSION: 1. No acute abnormality seen within the chest, abdomen, or pelvis. Dictated by: Dictated on workstation # [id number]
[2021-05-30 11:33] LABS: BASOPHILS # (AUTO) 0.1 10^3/uL (0.0-0.1); BASOPHILS % (AUTO) 1 % (0-10); EOSINOPHILS # (AUTO) 0.1 10^3/uL (0.0-0.3); EOSINOPHILS % (AUTO) 1 % (0-10); HEMATOCRIT 46 % (35-52); HEMOGLOBIN 15.7 g/dL (11.5-16.0); LYMPHOCYTES % (AUTO) 30 % (12-44); MEAN CORPUSCULAR HEMOGLOBIN 31 pg (25-34); MEAN CORPUSCULAR HGB CONC 34 g/dL (32-36); MEAN CORPUSCULAR VOLUME 92 fL (80-99); MEAN PLATELET VOLUME 10.3 fL (9.0-12.2); MONOCYTES # (AUTO) 0.5 10^3/uL (0.0-1.0); MONOCYTES % (AUTO) 5 % (0-12); NEUTROPHILS # (AUTO) 6.5 10^3/uL (1.8-7.8); NEUTROPHILS % (AUTO) 64 % (42-75); PLATELET COUNT 271 10^3/uL (130-400); WHITE BLOOD COUNT 10.2 10^3/uL (4.3-11.0)
[2021-05-30 11:43] LABS: ALBUMIN 4.1 GM/DL (3.2-4.5); POTASSIUM 5.7 MMOL/L (3.6-5.0)
[2021-05-30 11:44] LABS: CALCIUM 8.7 MG/DL (8.5-10.1)
[2021-05-30 11:46] LABS: TOTAL PROTEIN 8.2 GM/DL (6.4-8.2)
[2021-05-30 11:47] LABS: BILIRUBIN,TOTAL 0.7 MG/DL (0.1-1.0)
[2021-05-30 11:49] LABS: CREATININE SERUM 0.78 MG/DL (0.60-1.30)
[2021-05-30 11:53] LABS: MAGNESIUM 2.1 MG/DL (1.6-2.4)
--- NOTE | 2021-05-30 12:17 | ED Fall/Injury ---
General Chief Complaint: Trauma-Non Activation Stated Complaint: FELL HIT HEAD,DOUBLE VISION Nursing Triage Note: PT AMB TO [facility] W CANE CO OF FALL 2 NIGHTS AGO, PT STATES NO LOC, PT STATES FELL FORWARD, HIT KNEES, R HAND, CO OF R SIDE BACK PAIN, AND FACE HAD SL BLOODY NOSE AT TIME. PT STATES WOKE UP THIS AM W DOUBLE VISION. Source: patient Exam Limitations: no limitations History of Present Illness Date Seen by Provider: May 30, 2021 Time Seen by Provider: 10:39 Initial Comments This 76-year-old woman presents to the emergency room with concerns about a fall with facial and hand injury as well as intermittent diplopia. She tripped 2 days ago and fell forward, striking her right hand and the right side of her face on a concrete floor. She does not know exactly what caused her fall but she denies any prodrome of lightheadedness, dizziness, etc. patient did mention some neck discomfort during the assessment and the c-collar was applied. There was no loss of consciousness after the fall. Patient does not have diplopia now but did have some diplopia when she woke this morning. On exam she also has some pain and tenderness of the right chest wall and abdomen. She has some pain with inspiration. Location Injury Occurred: HOME Allergies and Home Medications Allergies Coded Allergies: Sulfa (Sulfonamide Antibiotics) (Unverified Allergy, Mild, 09/14/08) Uncoded Allergies: BENEDRYL (Allergy, Mild, 09/14/08) PCN (Allergy, Mild, 09/14/08) Patient Home Medication List Home Medication List Reviewed: Yes Aspirin (Aspir 81) 81 Mg Tablet.dr, 81 MG PO DAILY, (Reported) Entered as Reported by: MARJORIE BLACKWOOD on 11/19/171555 Calcium Carbonate (Antacid) 215 Mg Tab.chew, 215 MG PO TIDPC, (Reported) Entered as Reported by: MARJORIE BLACKWOOD on 11/19/171555 Gabapentin (Gabapentin) 300 Mg Capsule, 300 MG PO BID, (Reported) Entered as Reported by: MARJORIE BLACKWOOD on 11/19/171555 Glipizide (Glipizide) 10 Mg Tablet, 10 MG PO TID, (Reported) Entered as Reported by: MARJORIE BLACKWOOD on 11/19/171555 Insulin Detemir (Levemir Flextouch) 100 Unit/1 Ml Insuln.pen, 25 UNIT SQ HS, (Reported) Entered as Reported by: MARJORIE BLACKWOOD on 11/19/171555 Liraglutide (Victoza 3-Tashi) 0.6 Mg/0.1 Ml Pen.injctr, 1.2 MG SQ DAILY, (Reported) Entered as Reported by: MARJORIE BLACKWOOD on 11/19/171555 Metformin HCl (Metformin HCl) 500 Mg Tablet, 500 MG PO DAILY, (Reported) Entered as Reported by: MARJORIE BLACKWOOD on 11/19/171555 [place] 3 Polyunsat Fatty Acids (Fish Oil 1,000 mg Capsule) 1,000 Mg Cap, 1,000 MG PO TID, (Reported) Entered as Reported by: MARJORIE BLACKWOOD on 11/19/171555 Phentermine HCl (Phentermine HCl) 37.5 Mg Tablet, 56.25 MG PO DAILY, (Reported) Entered as Reported by: MARJORIE BLACKWOOD on 11/19/171555 Solifenacin Succinate (Vesicare) 5 Mg Tablet, 5 MG PO DAILY, (Reported) Entered as Reported by: MARJORIE BLACKWOOD on 11/19/171555 Thyroid,Pork ([place] Thyroid) 120 Mg Tablet, 120 MG PO DAILY, (Reported) Entered as Reported by: MARJORIE BLACKWOOD on 11/19/171555 Review of Systems Review of Systems Constitutional: no symptoms reported Eyes: See HPI Ears, Nose, Mouth, Throat: see HPI Respiratory: no symptoms reported Cardiovascular: no symptoms reported Gastrointestinal: no symptoms reported Genitourinary: no symptoms reported : No Musculoskeletal: see HPI Skin: see HPI Psychiatric/Neurological: See HPI Past Wle[place]-Cshcki-[place] Hx Patient Social History Tobacco Use?: No Substance use?: No Alcohol Use?: No Pt feels they are or have been: No Seasonal Allergies Seasonal Allergies: No Past Medical History Surgeries: Yes Appendectomy, Hysterectomy, Tonsillectomy Respiratory: No Neurological: No TIA : No Reproductive Disorders: No Genitourinary: No Gastrointestinal: Yes Hemorrhoids Musculoskeletal: No Endocrine: Yes Diabetes, Insulin dep, Hypothyroidsim Cancer: Yes Uterine Did You Recieve Any Treatments: Yes What Type of Treatment Did You: Surgical Intervention Psychosocial: No Family Medical History No Pertinent Family Hx Physical Exam Vital Signs Vital Signs - First Documented 05/30/21 10:40 Temp 35.8 Pulse 78 Resp 18 B/P (MAP) 153/69 (97) Pulse Ox 98 Capillary Refill : Less Than 3 Seconds Height, Weight, BMI Height: 5'3.00" Weight: 152lbs. 0.0oz. 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, no motor/sensory deficits, alert, normal mood/affect, oriented x 3 Skin: normal color, warm/dry Progress/Results/Core Measures Results/Orders Lab Results Laboratory Tests Test 05/30/21 10:42 05/30/21 11:25 05/30/21 13:43 Range/Units Glucometer 124 H 70-110 MG/DL White Blood Count 10.2 4.3-11.0 10^3/uL Red Blood Count 5.01 3.80-5.11 10^6/uL Hemoglobin 15.7 11.5-16.0 g/dL Hematocrit 46 35-52 % Mean Corpuscular Volume 92 80-99 fL Mean Corpuscular Hemoglobin 31 25-34 pg Mean Corpuscular Hemoglobin Concent 34 32-36 g/dL Red Cell Distribution Width 13.5 10.0-14.5 % Platelet Count 271 130-400 10^3/uL Mean Platelet Volume 10.3 9.0-12.2 fL Immature Granulocyte % (Auto) 0 % Neutrophils (%) (Auto) 64 42-75 % Lymphocytes (%) (Auto) 30 12-44 % Monocytes (%) (Auto) 5 0-12 % Eosinophils (%) (Auto) 1 0-10 % Basophils (%) (Auto) 1 0-10 % Neutrophils # (Auto) 6.5 1.8-7.8 10^3/uL Lymphocytes # (Auto) 3.0 1.0-4.0 10^3/uL Monocytes # (Auto) 0.5 0.0-1.0 10^3/uL Eosinophils # (Auto) 0.1 0.0-0.3 10^3/uL Basophils # (Auto) 0.1 0.0-0.1 10^3/uL Immature Granulocyte # (Auto) 0.0 0.0-0.1 10^3/uL Sodium Level 135 135-145 MMOL/L Potassium Level 5.7 H 3.6-5.0 MMOL/L Chloride Level 109 H 98-107 MMOL/L Carbon Dioxide Level 17 L 21-32 MMOL/L Anion Gap 9 5-14 MMOL/L Blood Urea Nitrogen 14 7-18 MG/DL Creatinine 0.78 0.60-1.30 MG/DL Estimat Glomerular Filtration Rate 72 BUN/Creatinine Ratio 18 Glucose Level 142 H 70-105 MG/DL Calcium Level 8.7 8.5-10.1 MG/DL Corrected Calcium 8.6 8.5-10.1 MG/DL Magnesium Level 2.1 1.6-2.4 MG/DL Total Bilirubin 0.7 0.1-1.0 MG/DL Aspartate Amino Transf (AST/SGOT) 40 H 5-34 U/L Alanine Aminotransferase (ALT/SGPT) 28 0-55 U/L Alkaline Phosphatase 91 40-136 U/L Total Protein 8.2 6.4-8.2 GM/DL Albumin 4.1 3.2-4.5 GM/DL Thyroid Stimulating Hormone (TSH) 1.56 0.35-4.94 UIU/ML Free Thyroxine 0.92 0.70-1.48 NG/DL Urine Color YELLOW Urine Clarity CLEAR Urine pH 6.5 5-9 Urine Specific [place] 1.010 L 1.016-1.022 Urine Protein NEGATIVE NEGATIVE Urine Glucose (UA) NEGATIVE NEGATIVE Urine Ketones NEGATIVE NEGATIVE Urine Nitrite NEGATIVE NEGATIVE Urine Bilirubin NEGATIVE NEGATIVE Urine Urobilinogen 0.2 < = 1.0 MG/DL Urine Leukocyte Esterase NEGATIVE NEGATIVE Urine RBC (Auto) NEGATIVE NEGATIVE Urine RBC RARE /HPF Urine WBC RARE /HPF Urine Squamous Epithelial Cells 0-2 /HPF Urine Crystals NONE /LPF Urine Bacteria NEGATIVE /HPF Urine Casts NONE /LPF Urine Mucus NEGATIVE /LPF Urine Culture Indicated NO My Orders Orders - RICKIE LAWS MD Ct Head/Face/Cervical Wo (05/30/21 10:41) Ed Iv/Invasive Line Start (05/30/21 10:55) Cbc With Automated Diff (05/30/21 10:55) Comprehensive Metabolic Panel (05/30/21 10:55) Magnesium (05/30/21 10:55) Ua Culture If Indicated (05/30/21 10:55) Ct Chest/Abdomen/Pelvis Wo (05/30/21 10:55) Thyroid Stimulating Hormone (05/30/21 11:15) Free T4 (Free Thyroxine) (05/30/21 11:15) Ns Iv 1000 Ml (Sodium Chloride 0.9%) (05/30/21 12:30) Vital Signs/I&O 05/30/21 05/30/21 10:40 14:14 Temp 35.8 Pulse 78 72 Resp 18 18 B/P (MAP) 153/69 (97) 142/72 Pulse Ox 98 98 Blood Pressure Mean: 97 Progress Progress Note : Progress Note No serious injuries were identified on imaging. Lab evaluation revealed some hyperkalemia. This may be due to her ARB. She was given a liter of IV fluid and instructed to discuss her medications with her primary care provider or grid maker. C-collar was removed after review of CT reports. There was no diplopia experienced identified during the ER visit. She was otherwise rama rologically intact. Diagnostic Imaging Diagonstic Imaging: CT Plain Films/CT/US/NM/MRI: facial bones, c-spine, head Comments CT head, face and cervical spine viewed by me and report reviewed. See report below: NAME: JESSICA ELLER [facility] REC#: [id number] PT STATUS: DEP ER : 1945 PHYSICIAN: RICKIE LAWS MD ADMIT DATE: 05/30/21/ER Signed Date of Exam:05/30/21 CT HEAD/FACE/CERVICAL WO PROCEDURE: CT head, face, and cervical spine without contrast. TECHNIQUE: Multiple contiguous axial images were obtained through the head, neck, and facial bones without the use of intravenous contrast. Sagittal and coronal reformations through the cervical spine and facial bones were also performed. Auto Exposure Controls were utilized during the CT exam to meet ALARA standards for radiation dose reduction. INDICATION: Fall with head, face and neck injury. Correlation is made with head CT from 12/15/2018. CT HEAD: Ventricles and sulci remain prominent consistent with cerebral atrophy. There is no sulcal effacement or midline shift. No acute intra-axial or extra-axial hemorrhage is detected. Cisterns are patent. Visualized paranasal sinuses are clear. IMPRESSION: Stable chronic changes. No acute intracranial process is detected. CT cervical spine: There is straightening of the normal cervical lordotic curvature. There is minimal anterolisthesis of C4 on C5. There is multilevel degenerative disc disease, greatest at C5-C6, C6/C7 and C7-T1 levels were there is moderate disc space narrowing and marginal spurring. Multilevel facet arthropathy is also noted. No fractures are identified. Prevertebral tissues are within normal limits. Odontoid is intact. IMPRESSION: Cervical spondylosis. No acute bony abnormality is detected. CT face: Mandible is intact. Zygotic arches are intact. Maxillary sinus tomlin, nasal bones and orbital tomlin are intact. No fracture is seen. The frontal sinuses show some minimal mucosal thickening. Sinuses are otherwise clear. Mastoids are well aerated. IMPRESSION: No facial bone fracture is detected. Dictated by: Dictated on workstation # [id number] Dict: 05/30/21 1105 Trans: 05/30/21 1535 [id number] Interpreted by: RESHMA CARLIN MD Electronically signed by: RESHMA CARLIN MD 05/30/21 1535 Diagonstic Imaging: CT Plain Films/CT/US/NM/MRI: chest, abdomen, pelvis Comments CT chest, abdomen and pelvis viewed by me and report reviewed. See report below: [facility] REC#: [id number] PT STATUS: REG ER : 1945 PHYSICIAN: RICKIE LAWS MD ADMIT DATE: 05/30/21/ER Signed Date of Exam:05/30/21 CT CHEST/ABDOMEN/PELVIS WO EXAMINATION: CT chest, abdomen and pelvis without intravenous contrast. TECHNIQUE: Multiple contiguous axial images were obtained through the chest, abdomen and pelvis without intravenous contrast. All CT scans use one or more of the following dose optimizing techniques: automated exposure control, MA and/or KvP adjustment based on patient size and exam type or iterative reconstruction. HISTORY: Fall, Rib pain, abdominal pain, back pain COMPARISON: None available. FINDINGS: Thyroid: The thyroid is normal. Mediastinum: Heart size is normal without significant pericardial effusion. Calcifications of the aorta and coronary vessels. Thoracic aorta is normal in caliber. No suspicious lymphadenopathy. Lungs and airways: The lungs are clear without consolidation, pleural effusion, or pneumothorax. There is atelectasis within the dependent lungs. The airways are normal. Solid organs: The liver is normal. The gallbladder is normal. There is no biliary ductal dilation. Pancreas is normal. Spleen is normal. Adrenal glands are normal. The kidneys are normal without hydronephrosis. Bowel: The stomach and small bowel are normal without obstruction. The colon is unremarkable. No findings of acute appendicitis. Peritoneum: There is no intraperitoneal free fluid or free air. No suspicious lymphadenopathy. Vasculature: Calcification of the aorta without aneurysm. Musculoskeletal: Degenerative changes of the spine without suspicious osseous lesion or compression fracture. There is bilateral L5 pars defects. No acute fracture. Pelvis: The uterus is surgically absent. No adnexal mass. The urinary bladder is normal. IMPRESSION: 1. No acute abnormality seen within the chest, abdomen, or pelvis. Dictated by: Dictated on workstation # [id number] Dict: 05/30/21 1111 Trans: 05/30/21 [facility]5 [id number] Interpreted by: RONIT PENA DO Electronically signed by: RONIT PENA DO 05/30/21 1225 Departure Impression Primary Impression: Fall on same level Qualified Codes: W18.30XA - Fall on same level, unspecified, initial encounter Additional Impressions: Diplopia Facial contusion Qualified Codes: S00.83XA - Contusion of other part of head, initial encounter Hyperkalemia Abdominal pain Qualified Codes: R10.9 - Unspecified abdominal pain Low back pain Qualified Codes: M54.50 - Low back pain, unspecified Disposition: 01 HOME, SELF-CARE Condition: Stable Departure-Patient Inst. Referrals: MITA FRANCO MD (PCP/Family) Primary Care Physician Patient Instructions: Contusion (DC) Add. Discharge Instructions: Follow-up with your primary care provider soon as possible. Discuss your high potassium level and possibly changing your losartan to a different medication that has less effect on potassium. You may take Tylenol (acetaminophen) up to 1000 mg every 6 hours as needed for pain. Drink plenty of water to stay well-hydrated. Follow-up with your professional athlete as soon as possible for an eye exam. Call with questions or concerns. Return to the ER if you have worsening symptoms. All discharge instructions reviewed with patient and/or family. Voiced understanding. Copy Copies To 1: RENE LO MD, JOSHUA T MD May 30, 2021 12:17
[2021-05-30] MEDS ORDERED: NS IV 1000 ML 1,000 ML IV SCH (12:30)
[2021-05-30 12:41] LABS: FREE T4 (FREE THYROXINE) 0.92 NG/DL (0.70-1.48)
[2021-05-30 13:47] LABS: BILIRUBIN,URINE NEGATIVE (NEGATIVE); CLARITY,URINE CLEAR; COLOR,URINE YELLOW; GLUCOSE, URINE (UA) NEGATIVE (NEGATIVE); KETONES,URINE NEGATIVE (NEGATIVE); LEUKOCYTE ESTERASE ,URINE NEGATIVE (NEGATIVE); NITRITE,URINE NEGATIVE (NEGATIVE); PH,URINE 6.5 (5-9); PROTEIN,URINE NEGATIVE (NEGATIVE)
[2021-05-30 13:54] LABS: BACTERIA,URINE NEGATIVE /HPF; RBC,URINE RARE /HPF; SQUAMOUS EPITHELIAL CELL,UR 0-2 /HPF; WBC,URINE RARE /HPF
[2021-05-30 14:14] VITALS: BP 142/72
== END 2021-05-30 14:14 | disposition home or self-care (01) ==
LOC: EDUNIT# 10:22 → ER 10:23
DX: S00.83XA Contusion of other part of head, initial encounter (principal); H53.2 Diplopia; E87.5 Hyperkalemia; M54.50 Low back pain, unspecified; R10.84 Generalized abdominal pain; E11.9 Type 2 diabetes mellitus without complications; Z86.73 Personal history of transient ischemic attack (TIA), and cerebral infarction without residual deficits; Z79.4 Long term (current) use of insulin; Z79.82 Long term (current) use of aspirin; W18.30XA Fall on same level, unspecified, initial encounter
CPT/HCPCS: 36415; 70450; 70486; 71250; 72125; 74176; 80053; 81000; 82947; 83735; 84439; 84443; 85025

== ENCOUNTER 2021-07-11 10:04 | Outpatient (RCR) | payer MEDICARE, MEDICAID | END 2021-07-15 | disposition home or self-care (01) | PROVIDERS: ATTEND Orthopaedic Surgery Sports Medicine | DX: M54.50 Low back pain, unspecified (principal) ==

== ENCOUNTER 2021-08-05 12:38 | Outpatient (RCR) | payer MEDICARE, MEDICAID | END 2021-08-12 | disposition home or self-care (01) | PROVIDERS: ATTEND Orthopaedic Surgery Sports Medicine | DX: M54.50 Low back pain, unspecified (principal); R53.1 Weakness ==

== ENCOUNTER 2021-11-08 12:37 | Outpatient (RCR) | payer MEDICARE, MEDICAID | END 2021-11-12 | disposition home or self-care (01) | PROVIDERS: ATTEND Orthopaedic Surgery Sports Medicine | DX: M51.36 Other intervertebral disc degeneration, lumbar region (principal) ==

== ENCOUNTER 2021-11-14 12:54 | Outpatient (RCR) | payer MEDICARE, MEDICAID | END 2021-12-12 | disposition home or self-care (01) | PROVIDERS: ATTEND Orthopaedic Surgery Sports Medicine | DX: M51.36 Other intervertebral disc degeneration, lumbar region (principal) ==

== ENCOUNTER 2022-02-19 10:51 | Emergency (ER) | payer MEDICARE, MEDICAID ==
[~2022-02-19] VITALS: Ht 157 cm; Wt 71.8 kg
[2022-02-19 14:57] LABS: BASOPHILS # (AUTO) 0.1 10^3/uL (0.0-0.1); BASOPHILS % (AUTO) 1 % (0-10); EOSINOPHILS # (AUTO) 0.1 10^3/uL (0.0-0.3); EOSINOPHILS % (AUTO) 1 % (0-10); HEMATOCRIT 46 % (35-52); HEMOGLOBIN 16.1 g/dL (11.5-16.0); LYMPHOCYTES # (AUTO) 2.9 10^3/uL (1.0-4.0); LYMPHOCYTES % (AUTO) 25 % (12-44); MEAN CORPUSCULAR HEMOGLOBIN 31 pg (25-34); MEAN CORPUSCULAR HGB CONC 35 g/dL (32-36); MEAN CORPUSCULAR VOLUME 88 fL (80-99); MEAN PLATELET VOLUME 10.6 fL (9.0-12.2); MONOCYTES # (AUTO) 0.7 10^3/uL (0.0-1.0); MONOCYTES % (AUTO) 6 % (0-12); NEUTROPHILS # (AUTO) 8.1 10^3/uL (1.8-7.8); NEUTROPHILS % (AUTO) 68 % (42-75); PLATELET COUNT 292 10^3/uL (130-400); WHITE BLOOD COUNT 11.8 10^3/uL (4.3-11.0)
[2022-02-19] MEDS ORDERED: ONDANSETRON 4 MG/2 ML (SDV) Z0FRAN IVP ONE (15:00)
--- NOTE | 2022-02-19 15:02 | ED General ---
General Chief Complaint: Abdominal/GI Problems Stated Complaint: VOMITING Nursing Triage Note: PT REPORTS SHE HAS BEEN VOMITING PERSISTENTLY SINCE 1800 LAST BLAISE. REPORTS SHE HASN'T FELT WELL FOR A WEEK OR SO, LOW ENERGY. Source of Information: Patient Exam Limitations: No Limitations History of Present Illness Date Seen by Provider: Feb 19, 2022 Time Seen by Provider: 14:45 Allergies and Home Medications Allergies Coded Allergies: Sulfa (Sulfonamide Antibiotics) (Unverified Allergy, Mild, 09/14/08) fluoxetine (Unverified Adverse Reaction, Unknown, PSYCHOSIS, 02/19/22) Uncoded Allergies: BENEDRYL (Allergy, Mild, 09/14/08) PCN (Allergy, Mild, 09/14/08) Patient Home Medication List Aspirin (Aspir 81) 81 Mg Tablet.dr, 81 MG PO DAILY, (Reported) Entered as Reported by: MARJORIE BLACKWOOD on 11/19/171555 Calcium Carbonate (Antacid) 215 Mg Tab.chew, 215 MG PO TIDPC, (Reported) Entered as Reported by: MARJORIE BLACKWOOD on 11/19/171555 Gabapentin (Gabapentin) 300 Mg Capsule, 300 MG PO BID, (Reported) Entered as Reported by: MARJORIE BLACKWOOD on 11/19/171555 Glipizide (Glipizide) 10 Mg Tablet, 10 MG PO TID, (Reported) Entered as Reported by: MARJORIE BLACKWOOD on 11/19/171555 Insulin Detemir (Levemir Flextouch) 100 Unit/1 Ml Insuln.pen, 25 UNIT SQ HS, (Reported) Entered as Reported by: MARJORIE BLACKWOOD on 11/19/171555 Liraglutide (Victoza 3-Tashi) 0.6 Mg/0.1 Ml Pen.injctr, 1.2 MG SQ DAILY, (Reported) Entered as Reported by: MARJORIE BLACKWOOD on 11/19/171555 Metformin HCl (Metformin HCl) 500 Mg Tablet, 500 MG PO DAILY, (Reported) Entered as Reported by: MARJORIE BLACKWOOD on 11/19/171555 [place] 3 Polyunsat Fatty Acids (Fish Oil 1,000 mg Capsule) 1,000 Mg Cap, 1,000 MG PO TID, (Reported) Entered as Reported by: MARJORIE BLACKWOOD on 11/19/171555 Phentermine HCl (Phentermine HCl) 37.5 Mg Tablet, 56.25 MG PO DAILY, (Reported) Entered as Reported by: MARJORIE BLACKWOOD on 11/19/171555 Solifenacin Succinate (Vesicare) 5 Mg Tablet, 5 MG PO DAILY, (Reported) Entered as Reported by: MARJORIE BLACKWOOD on 11/19/171555 Thyroid,Pork (Fertile Thyroid) 120 Mg Tablet, 120 MG PO DAILY, (Reported) Entered as Reported by: MARJORIE BLACKWOOD on 11/19/171555 Past Bniykqn-Vpfuqu-Rclins Hx Patient Social History Tobacco Use?: No Use of E-Cig and/or Vaping dev: No Substance use?: No Alcohol Use?: No Pt feels they are or have been: No Immunizations Up To Date Influenza Vaccine Up-to-Date: No; Not Current Seasonal Allergies Seasonal Allergies: No Past Medical History Surgery/Hospitalization HX: STROKE, R KNEE, UTERUS Surgeries: Yes Appendectomy, Hysterectomy, Tonsillectomy Respiratory: No Neurological: No TIA Reproductive Disorders: No Genitourinary: No Gastrointestinal: Yes Hemorrhoids Musculoskeletal: No Endocrine: Yes Diabetes, Insulin dep, Hypothyroidsim Cancer: Yes Uterine Did You Recieve Any Treatments: Yes What Type of Treatment Did You: Surgical Intervention Psychosocial: No Family Medical History No Pertinent Family Hx Physical Exam Vital Signs Vital Signs - First Documented 02/19/22 12:18 Temp 36.8 Pulse 93 Resp 16 B/P (MAP) 181/81 (114) Pulse Ox 98 O2 Delivery Room Air Capillary Refill : Height, Weight, BMI Height: 5'3.00" Weight: 152lbs. 0.0oz. 68.533282br; 29.00 BMI Method:Stated Progress/Results/Core Measures Suspected Sepsis SIRS Temperature: Pulse: 93 Respiratory Rate: 16 Laboratory Tests 02/19/22 14:47: White Blood Count 11.8H Blood Pressure 181 /81 Mean: 114 Laboratory Tests 02/19/22 14:47: Creatinine 0.88, Platelet Count 292, Total Bilirubin 1.2H Results/Orders Lab Results Laboratory Tests Test 02/19/22 14:47 02/19/22 15:36 Range/Units White Blood Count 11.8 H 4.3-11.0 10^3/uL Red Blood Count 5.23 H 3.80-5.11 10^6/uL Hemoglobin 16.1 H 11.5-16.0 g/dL Hematocrit 46 35-52 % Mean Corpuscular Volume 88 80-99 fL Mean Corpuscular Hemoglobin 31 25-34 pg Mean Corpuscular Hemoglobin Concent 35 32-36 g/dL Red Cell Distribution Width 13.0 10.0-14.5 % Platelet Count 292 130-400 10^3/uL Mean Platelet Volume 10.6 9.0-12.2 fL Immature Granulocyte % (Auto) 0 % Neutrophils (%) (Auto) 68 42-75 % Lymphocytes (%) (Auto) 25 12-44 % Monocytes (%) (Auto) 6 0-12 % Eosinophils (%) (Auto) 1 0-10 % Basophils (%) (Auto) 1 0-10 % Neutrophils # (Auto) 8.1 H 1.8-7.8 10^3/uL Lymphocytes # (Auto) 2.9 1.0-4.0 10^3/uL Monocytes # (Auto) 0.7 0.0-1.0 10^3/uL Eosinophils # (Auto) 0.1 0.0-0.3 10^3/uL Basophils # (Auto) 0.1 0.0-0.1 10^3/uL Immature Granulocyte # (Auto) 0.0 0.0-0.1 10^3/uL Sodium Level 140 135-145 MMOL/L Potassium Level 4.0 3.6-5.0 MMOL/L Chloride Level 100 98-107 MMOL/L Carbon Dioxide Level 27 21-32 MMOL/L Anion Gap 13 5-14 MMOL/L Blood Urea Nitrogen 14 7-18 MG/DL Creatinine 0.88 0.60-1.30 MG/DL Estimat Glomerular Filtration Rate 68 BUN/Creatinine Ratio 16 Glucose Level 242 H 70-105 MG/DL Calcium Level 10.7 H 8.5-10.1 MG/DL Corrected Calcium 8.5-10.1 MG/DL Total Bilirubin 1.2 H 0.1-1.0 MG/DL Aspartate Amino Transf (AST/SGOT) 61 H 5-34 U/L Alanine Aminotransferase (ALT/SGPT) 66 H 0-55 U/L Alkaline Phosphatase 84 40-136 U/L C-Reactive Protein High Sensitivity 0.49 0.00-0.50 MG/DL Total Protein 8.3 H 6.4-8.2 GM/DL Albumin 4.8 H 3.2-4.5 GM/DL Urine Color YELLOW Urine Clarity CLEAR Urine pH 6.0 5-9 Urine Specific [place] >=1.030 1.016-1.022 Urine Protein TRACE H NEGATIVE Urine Glucose (UA) NEGATIVE NEGATIVE Urine Ketones TRACE H NEGATIVE Urine Nitrite NEGATIVE NEGATIVE Urine Bilirubin NEGATIVE NEGATIVE Urine Urobilinogen 0.2 < = 1.0 MG/DL Urine Leukocyte Esterase NEGATIVE NEGATIVE Urine RBC (Auto) TRACE-I H NEGATIVE Urine RBC NONE /HPF Urine WBC 0-2 /HPF Urine Squamous Epithelial Cells 2-5 /HPF Urine Crystals NONE /LPF Urine Bacteria MODERATE H /HPF Urine Casts PRESENT /LPF Urine Hyaline Casts 0-2 H /LPF Urine Mucus SMALL H /LPF Urine Culture Indicated YES My Orders Orders - RENITA JAUREGUI PHYSICAL THERAPY PROFESSOR Ua Culture If Indicated (02/19/22 10:56) Cbc With Automated Diff (02/19/22 14:48) Comprehensive Metabolic Panel (02/19/22 14:48) Ed Iv/Invasive Line Start (02/19/22 14:48) Hs C Reactive Protein (02/19/22 14:48) Ondansetron Injection (Zofran Injectio (02/19/22 15:00) Covid 19 Inhouse Test (02/19/22 14:48) Influenza A And B By Pcr (02/19/22 14:48) Ct Abdomen/Pelvis Wo (02/19/22 15:54) Urine Culture (02/19/22 15:36) Medications Given in ED Current Medications Medications Dose Ordered Sig/Jessica Route Start Time Stop Time Status Last Admin Dose Admin Ondansetron HCl 4 mg ONCE ONCE IVP 02/19/22 15:00 02/19/22 15:01 DC 02/19/22 14:59 4 MG Vital Signs/I&O 02/19/22 12:18 Temp 36.8 Pulse 93 Resp 16 B/P (MAP) 181/81 (114) Pulse Ox 98 O2 Delivery Room Air Capillary Refill : Blood Pressure Mean: 114 Departure Impression Primary Impression: Nausea and vomiting Disposition: 01 HOME, SELF-CARE Condition: Improved Departure-Patient Inst. Decision time for Depature: 17:01 Referrals: MITA FRANCO MD (PCP/Family) Primary Care Physician Patient Instructions: Nausea and Vomiting, Adult ED Add. Discharge Instructions: Plan: 1. May take Zofran 4mg by mouth every 6 hours as needed for nausea/vomiting. 2. Start with clear liquids and advance as tolerated. 3. Return for any new, concerning, or worsening symptoms. All discharge instructions reviewed with patient and/or family. Voiced understanding. Scripts Ondansetron (Ondansetron Odt) 4 Mg Tab.rapdis 4 MG PO Q6H PRN for NAUSEA/VOMITING, #8 TAB 0 Refills Prov: RENITA JAUREGUI PHYSICAL THERAPY PROFESSOR 02/19/22 RENITA JAUREGUI PHYSICAL THERAPY PROFESSOR Feb 19, 2022 15:02
[2022-02-19 15:06] LABS: ALBUMIN 4.8 GM/DL (3.2-4.5); CHLORIDE 100 MMOL/L (98-107); SODIUM 140 MMOL/L (135-145)
[2022-02-19 15:07] LABS: CALCIUM 10.7 MG/DL (8.5-10.1)
[2022-02-19 15:08] LABS: GLUCOSE 242 MG/DL (70-105); TOTAL PROTEIN 8.3 GM/DL (6.4-8.2)
[2022-02-19 15:10] LABS: BILIRUBIN,TOTAL 1.2 MG/DL (0.1-1.0); CARBON DIOXIDE 27 MMOL/L (21-32)
[2022-02-19 15:12] LABS: ALKALINE PHOSPHATASE 84 U/L (40-136); CREATININE SERUM 0.88 MG/DL (0.60-1.30); GFR ESTIMATED 68
[2022-02-19 15:13] LABS: BUN/CREATININE RATIO 16
[2022-02-19 15:15] LABS: ALANINE AMINOTRANSFERASE 66 U/L (0-55)
[2022-02-19 16:00] LABS: BILIRUBIN,URINE NEGATIVE (NEGATIVE); CLARITY,URINE CLEAR; COLOR,URINE YELLOW; GLUCOSE, URINE (UA) NEGATIVE (NEGATIVE); KETONES,URINE TRACE (NEGATIVE); LEUKOCYTE ESTERASE ,URINE NEGATIVE (NEGATIVE); NITRITE,URINE NEGATIVE (NEGATIVE); PROTEIN,URINE TRACE (NEGATIVE)
--- NOTE | 2022-02-19 16:26 | Diagnostic Imaging Report ---
EXAMINATION: CT abdomen and pelvis without contrast. TECHNIQUE: Multiple contiguous axial images were obtained through the abdomen and pelvis without the use of intravenous contrast. All CT scans use one or more of the following dose optimizing techniques: automated exposure control, MA and/or KvP adjustment based on patient size and exam type or iterative reconstruction. HISTORY: Vomiting and elevated liver enzymes COMPARISON: 05/30/2021 FINDINGS: Limited views of the lower thorax are unremarkable. Liver is steatotic. No focal liver lesions are seen. There is no biliary ductal dilation. Gallbladder is normal. Pancreas is normal. Spleen is normal. Adrenal glands are normal. The kidneys are normal. There is no hydronephrosis. Urinary bladder is normal. Bowel is normal in caliber without obstruction or inflammation. No free fluid or air. No abdominal or pelvic lymphadenopathy. Aorta is normal in caliber without aneurysm. There are no suspicious osseus lesions. There is moderate anterolisthesis of L5 on S1 due to bilateral pars defects. IMPRESSION: 1. Steatotic liver. Dictated by: Dictated on workstation # [id number]
[2022-02-19 16:33] LABS: BACTERIA,URINE MODERATE /HPF; HYALINE CASTS, URINE 0-2 /LPF; WBC,URINE 0-2 /HPF
[2022-02-19] MEDS ORDERED: ONDA4TAB11 PO (17:03)
[2022-02-19 17:05] VITALS: BP 157/81
== END 2022-02-19 17:12 | disposition home or self-care (01) ==
LOC: EDUNIT# 10:51 → ER 10:52
DX: R11.2 Nausea with vomiting, unspecified (principal); Z28.310 Unvaccinated for COVID-19
CPT/HCPCS: 36415; 74176; 80053; 81000; 85025; 86141; 87088

== ENCOUNTER → 2022-07-04 | Outpatient (CLI) | payer MEDICARE, MEDICAID ==
[~2022-07-04] MED LIST changes: +ONDA4TAB11 PO
--- NOTE | 2022-07-04 14:48 | Diagnostic Imaging Report ---
EXAMINATION: CT abdomen and pelvis without contrast. TECHNIQUE: Multiple contiguous axial images were obtained through the abdomen and pelvis without the use of intravenous contrast. All CT scans use one or more of the following dose optimizing techniques: automated exposure control, MA and/or KvP adjustment based on patient size and exam type or iterative reconstruction. HISTORY: GENERALIZED ABD PAIN COMPARISON: 02/19/2022 FINDINGS: Lung bases: The lung bases are clear. Solid organs: There is diffuse hypoattenuation of the liver which may be seen with hepatic steatosis. The gallbladder is normal. There is no biliary ductal dilation. Pancreas is normal. Spleen is normal. Adrenal glands are normal. The kidneys are normal without visualized calculus or hydronephrosis. Bowel: The stomach and small bowel are normal without obstruction. The colon is unremarkable. No findings of acute appendicitis. Peritoneum: There is no intraperitoneal free fluid or free air. No suspicious lymphadenopathy. Vasculature: Calcification of the aorta without aneurysm. Musculoskeletal: Degenerative changes of the spine without suspicious osseous lesion or compression fracture. Bilateral L5 pars defects. Pelvis: The uterus is surgically absent. No adnexal mass. The urinary bladder is normal. IMPRESSION: 1. No visualized renal calculus or hydronephrosis. 2. No other acute abnormality in the abdomen or pelvis. Dictated by: Dictated on workstation # [id number]
== END ==
LOC: RAD 13:56
PROVIDERS: ATTEND Nurse Practitioner Family
DX: R32 Unspecified urinary incontinence (principal); R10.84 Generalized abdominal pain
CPT/HCPCS: 74176

== ENCOUNTER → 2022-07-15 | Outpatient (CLI) | payer MEDICARE, MEDICAID | LOC: CARD 13:10 | PROVIDERS: ATTEND Internal Medicine Cardiovascular Disease | DX: I08.0 Rheumatic disorders of both mitral and aortic valves (principal) | CPT/HCPCS: 93306 ==

== ENCOUNTER → 2022-08-06 | Outpatient (CLI) | payer MEDICARE, MEDICAID ==
[~2022-08-06] VITALS: Ht 157 cm; Wt 68.0 kg
[~2022-08-06] MED LIST changes: +CATHETER FLUSH 10 ML SYR IVP PRN; +REGADENOSON 0.4 MG/5 ML SYR (LEXISCAN) IV ONE
[2022-08-06 09:04] VITALS: BP 152/95
[2022-08-06 09:20] VITALS: BP 161/88
--- NOTE | 2022-08-06 15:00 | Cardiology Stress Test Report ---
Stress Test Report Date of Procedure/Referring: Date of Procedure: Aug 06, 2022 PCP Ricky Duong MD Admitting Physician Admitting Physician: Attending Physician: Wilma Vance MD Indications: CP Baseline Heart Rate: 78 Baseline Blood Pressure: Blood Pressure Systolic: 161 Blood Pressure Diastolic: 88 Baseline Vitals Vital Signs Date Time Temp Pulse Resp B/P (MAP) Pulse Ox O2 Delivery O2 Flow Rate FiO2 08/06/22 09:04 76 18 152/95 (114) 98 Room Air Baseline EKG: Baseline EKG: NSR Summary After explaining the procedure to the patient, she signed a consent and then brought to the stress nuclear laboratory. Patient received 0.4 mg Lexiscan for stress test, ECG, heart rate and blood pressure were monitored continuously. Resting and stress dose of radio tracer were injected, imaging was acquired and reviewed in short axis, horizontal long axis and vertical long axis views. TID: 1.19 SSS: 5 SDS: 5 EF: 70 Patient tolerated Lexiscan well Mild decrease uptake at the basal to mid inferior wall with mild reversibility probably due to extracardiac attenuation with increased gastric uptake, no significant ischemia or infarction noted on SPECT images Normal left ventricular size, EF 70% WILMA VANCE MD Aug 06, 2022 15:00
== END ==
LOC: CARD 08:02
PROVIDERS: ATTEND Internal Medicine Cardiovascular Disease
DX: I10 Essential (primary) hypertension (principal); I25.10 Atherosclerotic heart disease of native coronary artery without angina pectoris; R07.2 Precordial pain
CPT/HCPCS: 78452; 93017; A9502

== ENCOUNTER → 2023-01-13 | Outpatient (CLI) | payer MEDICARE ==
[~2023-01-13] MED LIST changes: -CATHETER FLUSH 10 ML SYR IVP PRN; -INSU100I29 SQ; +INSU100I30 SQ; -REGADENOSON 0.4 MG/5 ML SYR (LEXISCAN) IV ONE
[2023-01-13 13:38] LABS: BASOPHILS # (AUTO) 0.1 10^3/uL (0.0-0.1); BASOPHILS % (AUTO) 1 % (0-10); EOSINOPHILS # (AUTO) 0.2 10^3/uL (0.0-0.3); EOSINOPHILS % (AUTO) 2 % (0-10); HEMATOCRIT 49 % (35-52); HEMOGLOBIN 16.3 g/dL (11.5-16.0); LYMPHOCYTES # (AUTO) 2.7 10^3/uL (1.0-4.0); LYMPHOCYTES % (AUTO) 26 % (12-44); MEAN CORPUSCULAR HEMOGLOBIN 30 pg (25-34); MEAN CORPUSCULAR HGB CONC 33 g/dL (32-36); MEAN CORPUSCULAR VOLUME 89 fL (80-99); MEAN PLATELET VOLUME 10.5 fL (9.0-12.2); MONOCYTES # (AUTO) 0.4 10^3/uL (0.0-1.0); MONOCYTES % (AUTO) 4 % (0-12); NEUTROPHILS # (AUTO) 7.1 10^3/uL (1.8-7.8); NEUTROPHILS % (AUTO) 68 % (42-75); PLATELET COUNT 318 10^3/uL (130-400); WHITE BLOOD COUNT 10.4 10^3/uL (4.3-11.0)
[2023-01-13 13:59] LABS: ALBUMIN 4.5 GM/DL (3.2-4.5); BILIRUBIN,TOTAL 0.9 MG/DL (0.1-1.0); CALCIUM 9.9 MG/DL (8.5-10.1); CREATININE SERUM 1.06 MG/DL (0.60-1.30); POTASSIUM 4.3 MMOL/L (3.6-5.0); TOTAL PROTEIN 7.6 GM/DL (6.4-8.2)
[2023-01-13 14:21] LABS: FREE T4 (FREE THYROXINE) 1.14 NG/DL (0.70-1.48)
== END ==
LOC: LAB 13:01
PROVIDERS: ATTEND Family Medicine
DX: Z79.899 Other long term (current) drug therapy (principal)
CPT/HCPCS: 36415; 80053; 80061; 82306; 82607; 82746; 83036; 84207; 84425; 84439; 84443; 85025